=== PATIENT | female | born 1985 | race Caucasian/White ===

== ENCOUNTER 2018-06-22 17:11 | Inpatient (IN) | payer OTHER ==
[~2018-06-22] VITALS: Ht 160 cm; Wt 75.3 kg
[2018-06-22] MEDS ORDERED: ONDANSETRON ODT 4 MG ONE (18:23)
[2018-06-22] MEDS ORDERED: HYDROmorphone 2 MG/ML, 1ML ONE ×2 (18:23→19:27)
[2018-06-22] MEDS ORDERED: HYDROmorphone 2 MG/ML, 1ML IM ONE (18:30)
[2018-06-22] MEDS ORDERED: ONDANSETRON ODT 4 MG PO ONE (18:30)
--- NOTE | 2018-06-22 18:34 | NUR ---
From [facility] clinic: tibial plateau fx. LLE in splint, distal CMS LLE intact. Pain 11/14. Medicated w/ dilaudid & zofran. Advised to remain NPO. Placed on continuous pulse ox & NIbP monitors.
[2018-06-22 18:57] LABS: BASOPHILS # (AUTO) 0.01 x10^3/uL (0-0.1); BASOPHILS % (AUTO) 0 % (0-1); EOSINOPHILS % (AUTO) 0 % (1-7); LYMPHOCYTES # (AUTO) 1.23 x10^3/uL (1-3.4); LYMPHOCYTES % (AUTO) 7 % (22-44); MD NO; MEAN CORPUSCULAR HEMOGLOBIN 31.2 pg (27.0-34.8); MEAN CORPUSCULAR HGB CONC 34.5 g/dL (32.4-35.8); MEAN CORPUSCULAR VOLUME 90.7 fL (80-100); MEAN PLATELET VOLUME 7.6 fL (7.4-10.4); MONOCYTES # (AUTO) 0.23 x10^3/uL (0.2-0.8); MONOCYTES % (AUTO) 1 % (2-9); NEUTROPHILS # (AUTO) 15.89 x10^3/uL (1.8-6.8); NEUTROPHILS % (AUTO) 92 % (42-75); PLATELET COUNT 335 x10^3/uL (130-400); RED BLOOD COUNT 4.47 x10^6/uL (3.82-5.3); RED CELL DISTRIBUTION WIDTH 13.3 % (9.6-15.2)
[2018-06-22] MEDS ORDERED: SODIUM CHLORIDE FLUSH 10ML SYR IVF ONE (19:00)
[2018-06-22 19:06] LABS: INTERNATIONAL NORMALIZED RATIO 1.05 (0.93-1.1)
[2018-06-22 19:07] LABS: ANION GAP 5 mmol/L (5-15); CALCIUM 8.4 mg/dL (8.5-10.1); CHLORIDE 110 mmol/L (98-107); CREATININE 0.77 mg/dL (0.55-1.02)
[2018-06-22] MEDS ORDERED: HYDROmorphone 2 MG/ML, 1ML IVPush PRN (19:30)
--- NOTE | 2018-06-22 19:41 | NUR ---
PT MEDICATED FOR PAIN VIA IV. BEDSIDE RAILS UP FOR SAFETY. PT AWAITING CT.
[2018-06-22] MEDS ORDERED: ONDANSETRON 2MG/ML, 2ML ONE (20:09)
[2018-06-22] MEDS ORDERED: ONDANSETRON 2MG/ML, 2ML IVPush ONE (20:30)
[2018-06-22 20:41] VITALS: BP 111/71
[2018-06-22] MEDS ORDERED: OXYcodone/APAP 5/325MG TABLET PO ONE (21:30)
[2018-06-22] MEDS: morphine SULFATE 10 MG/ML, 1ML IVPush PRN ×3 (22:55→23:35)
[2018-06-22] MEDS ORDERED: hydrALAzine 20 MG/ML, 1ML IVPush PRN (23:00)
[2018-06-22] MEDS ORDERED: POLYETHYLENE GLYCOL 17 GM PACKET PO PRN (23:00)
[2018-06-22] MEDS ORDERED: BISACODYL 10 MG SUPP PR PRN (23:00)
[2018-06-22] MEDS ORDERED: ONDANSETRON ODT 4 MG PO PRN (23:00)
[2018-06-22] MEDS ORDERED: ONDANSETRON 2MG/ML, 2ML IVPush PRN (23:00)
[2018-06-22] MEDS ORDERED: DOCUSATE 100 MG CAPSULE PO PRN (23:00)
[2018-06-22 23:28] LABS: HEMOGLOBIN A1C 4.9 % (4.2-6.3)
[2018-06-22 23:29] LABS: FREE T4 (FREE THYROXINE) 0.89 ng/dL (0.76-1.46); THYROID STIMULATING HORMONE 2.29 mIU/L (0.358-3.740)
[2018-06-22] MEDS: SODIUM CHLORIDE 0.9% 1,000 ML IV SCH (23:36)
[2018-06-23 00:41] VITALS: BP 111/73
[2018-06-23] MEDS: OXYcodone/APAP 5/325MG TABLET PO PRN ×2 (00:45→06:57)
[2018-06-23 05:23] LABS: BASOPHILS # (AUTO) 0.04 x10^3/uL (0-0.1); BASOPHILS % (AUTO) 0 % (0-1); EOSINOPHILS # (AUTO) 0.02 x10^3/uL (0-0.4); EOSINOPHILS % (AUTO) 0 % (1-7); LYMPHOCYTES # (AUTO) 2.34 x10^3/uL (1-3.4); LYMPHOCYTES % (AUTO) 19 % (22-44); MD NO; MEAN CORPUSCULAR HEMOGLOBIN 30.9 pg (27.0-34.8); MEAN CORPUSCULAR HGB CONC 33.7 g/dL (32.4-35.8); MEAN CORPUSCULAR VOLUME 91.6 fL (80-100); MEAN PLATELET VOLUME 7.8 fL (7.4-10.4); MONOCYTES # (AUTO) 0.77 x10^3/uL (0.2-0.8); MONOCYTES % (AUTO) 6 % (2-9); NEUTROPHILS # (AUTO) 9.07 x10^3/uL (1.8-6.8); NEUTROPHILS % (AUTO) 74 % (42-75); PLATELET COUNT 286 x10^3/uL (130-400); RED BLOOD COUNT 3.78 x10^6/uL (3.82-5.3); RED CELL DISTRIBUTION WIDTH 13.2 % (9.6-15.2)
[2018-06-23] MEDS: morphine SULFATE 10 MG/ML, 1ML IVPush PRN ×4 (05:23→20:20)
[2018-06-23 05:27] LABS: ALANINE AMINOTRANSFERASE 20 U/L (12-78); ALBUMIN 3.3 g/dL (3.4-5.0); ANION GAP 3 mmol/L (5-15); CALCIUM 8.1 mg/dL (8.5-10.1); CHLORIDE 108 mmol/L (98-107); CREATININE 0.72 mg/dL (0.55-1.02)
[2018-06-23 05:30] LABS: ALKALINE PHOSPHATASE 74 U/L (45-117); BILIRUBIN,TOTAL 0.9 mg/dL (0.2-1.0); CHOLESTEROL, TOTAL 116 mg/dL (140-239); HDL CHOL % 50 % (28-40); HDL CHOLESTEROL (DIRECT) 58 mg/dL (40-60); LDL CHOLESTEROL,CALCULATED 48 mg/dL (54-169); LDL/HDL RATIO 0.8 (0.5-3.0); TRIGLYCERIDES 52 mg/dL (50-200); VLDL CHOLESTEROL 10 mg/dL (0-25)
[2018-06-23 06:02] LABS: MICROSCOPIC NOT IND
[2018-06-23 06:07] LABS: CULTURE INDICATED? NO
[2018-06-23 07:53] VITALS: BP 117/79
[2018-06-23] MEDS: SODIUM CHLORIDE 0.9% 1,000 ML IV SCH (09:17)
[2018-06-23 13:03] VITALS: BP 112/78
[2018-06-23] MEDS ORDERED: NEOSPORIN OINT, 15GM ONE (13:19)
[2018-06-23] MEDS ORDERED: LABETALOL 5MG/ML, 20ML IV PRN (13:30)
[2018-06-23] MEDS ORDERED: HALOPERIDOL 5 MG/ML IV PRN (13:30)
[2018-06-23] MEDS ORDERED: METOPROLOL 1 MG/ML, 5ML IV PRN (13:30)
[2018-06-23] MEDS ORDERED: MEPERIDINE/PF 25MG/0.5ML IVPush PRN (13:30)
[2018-06-23] MEDS ORDERED: DIPHENHYDRAMINE 50 MG/ML, 1ML IVPush PRN (13:30)
[2018-06-23] MEDS ORDERED: hydrALAzine 20 MG/ML, 1ML IV PRN (13:30)
[2018-06-23] MEDS ORDERED: PROCHLORPERAZINE 5 MG/ML, 2ML IV PRN (13:30)
[2018-06-23] MEDS ORDERED: OXYcodone 5 MG/5 ML ORAL.SOL UDC PO PRN (13:30)
[2018-06-23] MEDS ORDERED: PROMETHAZINE 25 MG/ML, 1ML IV PRN (13:30)
[2018-06-23] MEDS ORDERED: FENTANYL PF 250 MCG/5ML ONE (13:49)
[2018-06-23] MEDS ORDERED: SUCCINYLCHOLINE 20 MG/ML, 10ML ONE (14:58)
[2018-06-23] MEDS ORDERED: CEFAZOLIN 1,000 MG ONE (14:58)
[2018-06-23] MEDS ORDERED: ONDANSETRON 2MG/ML, 2ML ONE (14:58)
[2018-06-23] MEDS ORDERED: ROCURONIUM 10 MG/ML,10ML ONE (14:58)
[2018-06-23] MEDS ORDERED: KETOROLAC 30 MG/1 ML ONE (14:58)
[2018-06-23] MEDS ORDERED: NEOSTIGMINE 1 MG/ML, 10ML ONE (14:58)
[2018-06-23] MEDS ORDERED: PROPOFOL 10 MG/ML, 20ML ONE (14:58)
[2018-06-23] MEDS ORDERED: GLYCOPYRROLATE 0.2MG/1ML, 5ML ONE (14:58)
[2018-06-23] MEDS ORDERED: DEXAMETHASONE 4 MG/ML, 1ML ONE (14:58)
[2018-06-23] MEDS ORDERED: FENTANYL PF 100 MCG/2ML ONE ×3 (16:51→17:30)
[2018-06-23] MEDS ORDERED: HYDROmorphone 2 MG/ML, 1ML ONE (17:18)
[2018-06-23] MEDS ORDERED: OXYcodone 5 MG/5 ML ORAL.SOL UDC ONE (17:18)
[2018-06-23] MEDS: FENTANYL PF 100 MCG/2ML IV PRN ×2 (17:22→17:27)
[2018-06-23] MEDS: HYDROmorphone 2 MG/ML, 1ML IVPush PRN ×4 (17:22→18:24)
[2018-06-23] MEDS ORDERED: LORazepam 2 MG/ML, 1ML ONE (17:26)
[2018-06-23] MEDS ORDERED: LORazepam 2 MG/ML, 1ML IVPush PRN (17:30)
[2018-06-23] MEDS ORDERED: MIDAZOLAM 1 MG/ML, 2ML IV PRN (17:30)
[2018-06-23] MEDS ORDERED: DIAZEPAM 5 MG/ML, 2ML IVPush PRN (17:30)
[2018-06-23 19:05] VITALS: BP 112/77
[2018-06-23] MEDS ORDERED: ACETAMINOPHEN 325 MG TABLET PO PRN (19:30)
[2018-06-23] MEDS ORDERED: BISACODYL 10 MG SUPP PR PRN (19:30)
[2018-06-23] MEDS ORDERED: HYDROcodone/APAP 7.5-325MG/15ML UDC PO PRN (19:30)
[2018-06-23] MEDS ORDERED: DIPHENHYDRAMINE 25 MG CAPSULE PO PRN (19:30)
[2018-06-23] MEDS ORDERED: SENNA/DOCUSATE TABLET PO PRN (19:30)
[2018-06-23] MEDS ORDERED: MAGNESIUM HYDROXIDE 8%, 30ML UDC PO PRN (19:30)
[2018-06-23] MEDS ORDERED: ALUMINUM/MAG/SIMETHICONE 30 ML UDC PO PRN (19:30)
[2018-06-23] MEDS ORDERED: ONDANSETRON 2MG/ML, 2ML IV PRN (19:30)
[2018-06-23] MEDS: DOCUSATE 100 MG CAPSULE PO SCH (20:20)
[2018-06-23] MEDS: OXYcodone 5 MG/5 ML ORAL.SOL UDC PO PRN (21:35)
[2018-06-23] MEDS: POTASSIUM CHLORIDE 10 MEQ in D5%-0.45% NACL 1,000 ML IV SCH (21:35)
[2018-06-23] MEDS: ACETAMINOPHEN 325 MG TABLET PO PRN (21:36)
[2018-06-23] MEDS: CEFAZOLIN PMX 1GM/50ML 50 ML IVPB SCH (22:30)
[2018-06-23] MEDS: KETOROLAC 30 MG/1 ML IV SCH (22:30)
[2018-06-24 00:14] VITALS: BP 110/71
[2018-06-24] MEDS: OXYcodone 5 MG/5 ML ORAL.SOL UDC PO PRN ×4 (01:38→13:57)
[2018-06-24] MEDS: ACETAMINOPHEN 325 MG TABLET PO PRN (01:39)
[2018-06-24 04:00] VITALS: BP 106/68
[2018-06-24] MEDS: CEFAZOLIN PMX 1GM/50ML 50 ML IVPB SCH (05:58)
[2018-06-24] MEDS: KETOROLAC 30 MG/1 ML IV SCH ×2 (05:58→13:57)
[2018-06-24] MEDS ORDERED: ENOXAPARIN 30 MG/0.3 ML SQ SCH (06:00)
[2018-06-24 07:27] VITALS: BP 95/60
[2018-06-24] MEDS ORDERED: MULTIVITAMINS/MINERALS TABLET PO SCH (09:00)
[2018-06-24] MEDS: DOCUSATE 100 MG CAPSULE PO SCH (09:49)
[2018-06-24 12:36] VITALS: BP 93/54
[2018-06-24] MEDS: POTASSIUM CHLORIDE 10 MEQ in D5%-0.45% NACL 1,000 ML IV SCH (13:58)
[2018-06-24] MEDS ORDERED: OXYC-307 PO (14:34)
== END 2018-06-24 16:50 | disposition home or self-care (01) | DRG 494 ==
LOC: ED 19:30 → 4NOR 19:46 → DCLOUNGE 06-24 16:45
PROVIDERS: ADMIT Internal Medicine; ATTEND Internal Medicine
PROC: 0QSH04Z Reposition Left Tibia with Internal Fixation Device, Open Approach (ICD-10-PCS; principal; 2018-06-22)
PROC: 0SJD4ZZ Inspection of Left Knee Joint, Percutaneous Endoscopic Approach (ICD-10-PCS; 2018-06-23 14:30)
DX: S82.142A Displaced bicondylar fracture of left tibia, initial encounter for closed fracture (principal); M41.9 Scoliosis, unspecified; J45.909 Unspecified asthma, uncomplicated; D72.829 Elevated white blood cell count, unspecified; V00.321A Fall from snow-skis, initial encounter; Y93.23 Activity, snow (alpine) (downhill) skiing, snowboarding, sledding, tobogganing and snow tubing; Y92.89 Other specified places as the place of occurrence of the external cause; Y99.8 Other external cause status
CPT/HCPCS: 36415; 73564; 76000; 99285; J3490; 71045; 80048; 80053; 80061; 81003; 82040; 83036; 83735; 84439; 84443; 84703; 85025; 85610; 85730; 93005; 96374; C1713; G0378; J0690; J1100; J1170; J1650; J1885; J2405; J2704; J2710; J3010; J3480; J0330; J2060; J2270; J7030